=== PATIENT | female | born 1985 | race Caucasian/White ===

== ENCOUNTER 2017-03-10 21:08 | Emergency (ER) | payer MEDICARE, OTHER | END 2017-03-10 22:40 | disposition home or self-care (01) | LOC: ER1 21:08 | DX: M25.572 Pain in left ankle and joints of left foot (principal); M25.571 Pain in right ankle and joints of right foot; F17.210 Nicotine dependence, cigarettes, uncomplicated | CPT/HCPCS: 73610; 99283 ==